=== PATIENT | male | born 1970 | race Caucasian/White ===

== ENCOUNTER 2016-07-20 14:39 | Inpatient (IN) | payer OTHER ==
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
--- NOTE | ~2016-07-20 | HP ---
Unit #: [id number] #: [id number] Patient: YONI AVILES [id number] [place] [address] [id number] MR#: [id number] NAME: YONI AVILES ROOM: P257 Age: 45 Sex: M Admission Date: 07/20/2016 : 1970 Attending Physician: Crow Fuller M.D. Admitting Physician: Crow Fuller M.D. Primary Care Physician: Crow Mendenhall M.D. HISTORY AND PHYSICAL HISTORY OF PRESENT ILLNESS Yoni is a 45-year-old male admitted on 07/20/2016 to [facility] for depression, anxiety and suicidal ideation. PAST MEDICAL HISTORY 1. High cholesterol 2. Gastroesophageal reflux disease PAST SURGICAL HISTORY None. SOCIAL HISTORY No tobacco or illegal drug use. He does report occasional alcohol use about twice per month. He is currently and previously had been living with his girlfriend however yesterday he was kicked out and he is not sure where he will live when he is discharged. FAMILY HISTORY Noncontributory. REVIEW OF SYSTEMS CONSTITUTIONAL: No fever or chills. HEENT: Denies any sore throat, ear pain or runny nose. CARDIOVASCULAR: Denies chest pain, irregular heart rhythm or palpitations. CHEST: Denies shortness of breath or cough. No hemoptysis. GASTROINTESTINAL: Denies nausea, vomiting, diarrhea or chronic constipation. ENDOCRINE: Denies history of increased thirst or urination. No recent significant weight loss or gain. GENITOURINARY: Denies dysuria, frequency, or hematuria. SKIN: Denies any rashes. HEMATOLOGIC: Denies history of increased bleeding or bruising. MUSCULOSKELETAL: Denies any hot, swollen joints. No generalized muscle pain. NEUROLOGIC: Denies problems with vision or speech. No frequent, severe headaches. No numbness, tingling or weakness in any extremities. Denies loss of bladder or bowel control. CURRENT MEDICATIONS 1. Prozac 2. Vyvanse Unit #: [id number] #: [id number] Patient: YONI AVILES 3. Prilosec 4. Neurontin ALLERGIES Reglan PHYSICAL EXAMINATION GENERAL: Alert, oriented, in no acute distress. VITAL SIGNS: Blood pressure 126/75, heart rate 102. HEIGHT: 5 foot 6 inches. WEIGHT: 147 pounds. SKIN: Warm and dry without rash or lesion. HEENT: Normocephalic. TMs not viewed. Oral and nasal passages clear. Conjunctivae clear. PERRLA. EOMs intact. NECK: Supple without lymphadenopathy or thyromegaly. HEART: Regular rate and rhythm without murmur. LUNGS: Clear. ABDOMEN: Soft, nontender, without masses or hepatosplenomegaly. : Not done. EXTREMITIES: No evidence of cyanosis, clubbing or edema. Moves all without focal deficit. NEUROLOGICAL: Grossly within normal limits. Cranial Nerves: II: Visual nunez are intact. III, IV AND : Extraocular movements are intact. Pupils are equal, round and reactive to light. V: Facial sensation is grossly normal. VII: Facial movements and expression are normal. VIII: Auditory acuity grossly intact. IX, X: Uvula is midline. Phonation is normal. XI: Patient shrugs shoulders and turns head normally. XII: Tongue protrudes in the midline. Sensory and Motor Function: Sensory and motor sensation is grossly normal. Motor: moves all extremities well. Coordination: Gait is normal. Deep Tendon Reflexes: Intact. IMPRESSION Psychiatric admission. RECOMMENDATIONS Psychiatric, per psychiatrist. MEDICAL: I see no contraindications to participating in facility's activities. MEDICAL PROGNOSIS Good. MEDICAL CONDITION Stable. Dictated by... Hussain Hall Unit #: [id number] #: [id number] Patient: YONI AVILES TD: 07/21/2016 22:33 JOB #: [id number] HISTORY AND PHYSICAL X SANDRA MONTERO APRN HISTORY AND PHYSICAL
--- NOTE | ~2016-07-20 | DS ---
Unit #: [id number] #: [id number] Patient: YONI AVILES [id number] [place] [address] [id number] I MR#: [id number] NAME: YONI AVILES ROOM: P257 Age: 45 Sex: M Admission Date: 07/20/2016 : 1970 Discharge Date: 07/23/2016 Attending Physician: Crow Fuller M.D. Primary Care Physician: Crow Mendenhall M.D. DISCHARGE SUMMARY REASON FOR ADMISSION Yoni is a 45-year-old man with a long history of depression and anxiety that is exacerbated today by argument with his girlfriend during which he expressed suicidal thinking. He said he is going to either hang himself or use a knife to kill himself who was able to contract for safety. He was admitted for stabilization. DIAGNOSTIC STUDIES LABORATORY RESULTS: Toxicology was positive for prescribed amphetamines only. CMP and CBC were within normal limits. HOSPITAL COURSE Yoni was admitted and placed on suicide precautions due to history of mood lability, and the possibility of a diagnosis of bipolar disorder, lamotrigine 25 mg at bedtime was initiated with a plan to titrate upwards in the outpatient setting. The patient participated appropriately in unit groups and activities, and he worked with the long term care social worker on contacting his ex-fiancee with him, a partial reconciliation was initiated. He was fully cooperative and open with treatment and on the date of discharge, he had no further suicidal ideation, intent, or plan. DISCHARGE DIAGNOSES AXIS I: Major depressive disorder, recurrent; rule out bipolar II disorder. AXIS II: No diagnosis. AXIS III: High cholesterol and neck pain. AXIS IV: AXIS V: DISCHARGE INSTRUCTIONS The patient will follow up with [facility] for long-term medication management and psychotherapy. DISCHARGE MEDICATIONS Lamotrigine 25 mg take one p.o. q.h.s. x2 weeks and 2 p.o. q.h.s. at bedtime for mood instability, to be titrated upwards as per outside physician. The patient was to continue on his other medications as prescribed. CONDITION AT DISCHARGE Improved. Unit #: [id number] #: [id number] Patient: YONI AVILES PROGNOSIS Good. DIET AND ACTIVITY Per primary care doctor. Dictated by... Brent Ramirez/loren TD: 07/24/2016 03:28 JOB #: [id number] DISCHARGE SUMMARY Page 1 of 1 X Crow Fuller MD DISCHARGE SUMMARY
--- NOTE | ~2016-07-20 | PN ---
Unit #: [id number] #: [id number] Patient: YONI AVILES [id number] [facility] [address] [place] [address] [id number] I MR#: [id number] NAME: YONI AVILES ROOM: P257 Age: 45 Sex: M Admission Date: 07/20/2016 : 1970 Attending Physician: Crow Fuller M.D. Admitting Physician: Crow Fuller M.D. Primary Care Physician: Brent Benitez PROGRESS NOTES DATE 07/22/2016 DISCUSSION Yoni is a little bit better today and tolerated lamotrigine with no adverse side effects last night. He has no rash, dizziness, or other problems. He does report ongoing difficulty with his family, who insist that he must "hit bottom" by going to a homeless custodial and losing all of his possessions before they are willing to help him out. He is somewhat baffled by this chong attitude. The family also apparently continues to insist that he has an extended hospitalization, although he has explained to them that this is not appropriate in his condition. He does continue to have fleeting thoughts of suicide and is unable to contract for safety today, but continues to advocate for a short hospital stay. ASSESSMENT Major depression. PLAN Continue current treatment plan and involve social services counselor to make family contacts. Dictated by... Crow Fuller M.D. [facility]/dzh TD: 07/23/2016 22:01 JOB #: [id number] O[facility] PROGRESS NOTES Page 1 of 1 X Crow Fuller MD PROGRESS NOTE
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
[2016-07-21 12:49] LABS: ALBUMIN SERUM 4.1 g/dL (3.5-5.0); ALKALINE PHOSPHATASE 77 U/L (32-92); ALT (SGPT) 33 U/L (10-40); AST (SGOT) 28 U/L (10-42); BILIRUBIN,TOTAL 0.6 mg/dL (0.2-2.0); BLOOD UREA NITROGEN 12 mg/dL (9-23); CALCIUM SERUM 9.3 mg/dL (8.4-10.2); CARBON DIOXIDE 30 mmol/L (22-31); CHLORIDE 101 mmol/L (100-111); GLOM FILT RATE Estimated ABOVE60 mL/min (>60); GLUCOSE FASTING 103 mg/dL (70-110); POTASSIUM 3.6 mmol/L (3.5-5.1); SODIUM 141 mmol/L (135-145)
[2016-07-21 12:51] LABS: BASOPHIL% 1.1 % (0-2.5); EOSINOPHIL# 0.2 X10e3 (0-0.7); EOSINOPHIL% 5.3 % (0.0-7.0); HEMATOCRIT 46.3 % (38.0-50.0); HEMOGLOBIN 14.8 gm/dL (13.0-16.0); LYMPHOCYTE# 1.1 X10e3 (1.0-3.5); LYMPHOCYTE% 23.6 % (17.0-45.0); MEAN CELL VOLUME 88.4 FL (83-96); MEAN CORPUSCULAR HEMOGLOBIN 28.2 PG (28-34); MEAN CORPUSCULAR HGB CONC 31.9 g/dL (30-36); MEAN PLATELET VOLUME 9.9 FL (6.5-11.5); MONOCYTE# 0.3 X10e3 (0-1.0); MONOCYTE% 7.7 % (3.0-12.0); NEUTROPHIL# 2.8 X10e3 (1.5-7.1); NEUTROPHIL% 62.3 % (40-75); PLATELET COUNT 234 X10e3 (140-420); RED BLOOD COUNT 5.24 X10e (3.90-5.60); RED CELL DISTRIBUTION WIDTH 13.9 % (11.0-15.5); WHITE BLOOD COUNT 4.5 X10e3 (4.0-10.5)
[2016-07-21 12:52] LABS: DIFF IND NO
[2016-07-21 12:59] LABS: THYROID STIMULATING HORMONE 1.09 uIU/ml (0.34-5.60)
[2016-07-21 13:06] LABS: FREE THYROXIN (T4) 0.78 ng/dL (0.58-1.64)
[2016-07-21 14:31] LABS: AMPHETAMINE POS (NEG); BARBITURATES NEG (NEG); BENZODIAZEPINES NEG (NEG); COCAINE NEG (NEG); MARIJUANA NEG (NEG); OPIATES NEG (NEG); TRICYCLIC ANTIDEPRESSANTS NEG (NEG); U METHADONE NEG (NEG)
== END 2016-07-23 14:00 | disposition home or self-care (01) | DRG 885 ==
LOC: P2L 14:39
PROVIDERS: Psychiatry & Neurology Psychiatry
DX: F33.2 Major depressive disorder, recurrent severe without psychotic features (principal); M54.2 Cervicalgia; E78.00 Pure hypercholesterolemia, unspecified
CPT/HCPCS: 80053; 80307; 84439; 84443; 85025